=== PATIENT | female | born 1930 | race Caucasian/White ===

== ENCOUNTER 2018-02-05 16:49 | Emergency (ER) | payer MEDICARE, BC ==
[~2018-02-05] VITALS: Ht 160 cm; Wt 79.4 kg
--- NOTE | ~2018-02-05 | EKG ---
[place], [place] ELECTROCARDIOGRAM REPORT NAME: SULEMA BOLANOS UNIT #: [id number] ROOM: DOCTOR: MELISSA ALEJANDRO MD BIRTHDATE: [birth year] DOS: 02/05/2018 TIME: 1758 hours. FINDINGS: 1. Normal sinus rhythm at 68 beats per minute. 2. Normal ECG. 3. No previous tracing is available for comparison. MELISSA ALEJANDRO MD CM:EKGRPT:ELECTROCARDIOGRAM REPORT 1117 1425 MELISSA ALEJANDRO MD
[2018-02-05 16:49] VITALS: BP 156/61
[2018-02-05] MEDS ORDERED: LORAZEPAM0.5 MG PO (17:04)
[2018-02-05] MEDS ORDERED: CELEBREX100 MG PO (17:04)
[2018-02-05] MEDS ORDERED: ASPIRIN81 M1 PO (17:04)
[2018-02-05] MEDS ORDERED: SERTRALINE HYDR50 MG PO (17:05)
[2018-02-05] MEDS ORDERED: NITROFURANTOIN100 M9 PO (17:05)
[2018-02-05] MEDS ORDERED: ATARAX,VISTARIL10 MG PO (17:06)
[2018-02-05] MEDS ORDERED: MIRALAX POWDER255 G1 PO (17:07)
[2018-02-05] MEDS ORDERED: SENNA8.6 MG PO (17:07)
[2018-02-05] MEDS ORDERED: TYLENOL325 M1 PO (17:08)
[2018-02-05 18:24] LABS: BASO % 0.6 % (0.0-1.0); EOS # 0.2 10*3/uL (0.0-0.4); EOS % 3.7 % (1.0-4.0); HEMATOCRIT 44.6 % (37.0-47.0); HEMOGLOBIN 14.8 g/dl (12.0-16.0); LYMPH # 1.9 10*3/uL (1.3-4.4); LYMPH % 40.2 % (27.0-41.0); MEAN CELL VOLUME 91.6 fl (81.0-99.0); MEAN CORPUSCULAR HGB 30.4 pg (27.0-31.0); MEAN CORPUSCULAR HGB CONC 33.2 g/dl (33.0-37.0); MONO # 0.3 10*3/uL (0.1-1.0); NEUT # 2.3 10*3/uL (2.3-7.9); NEUT % 49.3 % (47.0-73.0); PLATELET COUNT AUTOMATED 175 10*3/uL (130-400); RED BLOOD COUNT 4.87 10*6/uL (4.10-5.10); RED CELL DISTRI WIDTH 13.5 % (0-14.5); WHITE BLOOD COUNT 4.6 10*3/uL (4.8-10.8)
[2018-02-05 18:31] LABS: BILIRUBIN NEGATIVE (NEGATIVE); BLOOD TRACE-INTACT (NEGATIVE); CLARITY CLEAR (CLEAR); COLOR YELLOW (YELLOW); GLUCOSE NEGATIVE (NEGATIVE); KETONE NEGATIVE (NEGATIVE); LEUKO ESTERASE TRACE (NEGATIVE); NITRITE NEGATIVE (NEGATIVE); PH 5.5 (5.0-9.0); SPECIFIC GRAVITY <= 1.005 (1.005-1.030); UROBILINOGEN 0.2 E.U./dl (0.2-1.0)
[2018-02-05 18:40] LABS: ALBUMIN 3.5 gm/dl (3.1-4.5); ALKALINE PHOSPHATASE 70 U/L (45-117); BUN 12 mg/dl (7-24); CHLORIDE 103 mmol/L (98-107); CREATININE 0.86 mg/dL (0.55-1.02); POTASSIUM 4.5 mmol/L (3.5-5.1); SGOT/AST 17 IU/L (3-35); SGPT/ALT 17 U/L (12-78); SODIUM 138 mmol/L (136-145); TOTAL PROTEIN 6.8 gm/dL (6.4-8.2)
[2018-02-05 18:41] LABS: RBC 0-2 rbc/hpf (0-2); YEAST 1+
[2018-02-05 18:43] LABS: URINE AMPHETAMINES < 1000 (1000ng/ml); URINE BARBITURATES < 200 (200ng/ml); URINE BENZODIAZEPINES < 200 (200ng/ml); URINE CANNABINOIDS (THC) < 50 (50ng/ml); URINE COCAINE < 300 (300ng/ml); URINE METHADONE < 300 (300ng/ml); URINE OPIATES < 300 (300ng/ml)
[2018-02-05 18:50] LABS: ACETAMINOPHEN (TYLENOL) < 2.0 ug/ml (10-30); ETHYL ALCOHOL < 3.0 mg/dl (<3)
[2018-02-05 18:51] LABS: URINE PHENCYCLIDINE < 25 (25ng/ml)
== END 2018-02-05 21:47 | disposition home health service (06) ==
LOC: ED 16:49
PROVIDERS: Physician Assistant
DX: F33.3 Major depressive disorder, recurrent, severe with psychotic symptoms (principal); Z98.890 Other specified postprocedural states; Z90.710 Acquired absence of both cervix and uterus; Z96.641 Presence of right artificial hip joint; Z79.899 Other long term (current) drug therapy; Z79.82 Long term (current) use of aspirin; Z88.2 Allergy status to sulfonamides; Z88.5 Allergy status to narcotic agent; Z88.6 Allergy status to analgesic agent; Z88.8 Allergy status to other drugs, medicaments and biological substances

== ENCOUNTER 2018-02-05 21:41 | Inpatient (IN) | payer MEDICARE, BC ==
--- NOTE | ~2018-02-05 | PR ---
[place], [place] PROGRESS NOTE NAME: SULEMA BOLANOS UNIT #: [id number] ROOM: 317 DOCTOR: ADAM FRASER MD BIRTHDATE: [birth year] DOS: 02/09/2018 CHIEF COMPLAINT: "I just want to go home." SUMMARY OF THE VISIT: The patient was interviewed in the dining area where she was sitting after eating her breakfast. She had completed her entire breakfast. As I approached, she engaged readily in conversation, reporting that she wants to leave the hospital and was hopeful she can go home soon. She could not tell me how long she had been here or even why she was here, but she was pleasant in doing so. There was no mood lability or agitation noted. MENTAL STATUS: She remains alert and oriented to person, place and that she knows she is in the hospital, not necessarily to time. Mood does seem to be improving. Affect is much more appropriate. There was no carey or hypomania. There are no gross psychotic symptoms. Short-term memory is exceptionally poor and she does process conversation at times slowly with sparse responses. PLAN: I will increase simultaneously the Exelon patch from 4.6 mg a day to 9.5 mg a day while increasing Namenda from 5 mg a day to 5 mg b.i.d. We will engage in individual and rooney milieu activity, returning to the least restrictive environment when psychiatrically stable. ADAM FRASER MD CM:PNTRANS [id number] ADAM FRASER MD 02/09/18 1417 interface
--- NOTE | ~2018-02-05 | DS ---
[place], [place] DISCHARGE SUMMARY NAME: SULEMA BOLANOS [facility] #: [id number] UNIT #: [id number] ROOM: 317 DOCTOR: ADAM FRASER MD BIRTHDATE: [birth year] DOS: 02/11/2018 CHIEF COMPLAINT: "I don't want to be here." HISTORY OF PRESENT ILLNESS: This is an 88-year-old white female who was sent to the Emergency Room at [facility] from [facility] in [place]. The patient was found on the day of admission having wrapped a necklace around her neck very tightly, threatening suicide. She reports ongoing depression ever since she was admitted to [facility]. This has been going on now for weeks, worsening in the last several days prior to this admission. During this period of time, she has not been attending to her ADLs. She has not been sleeping or eating well. She has been very negativistic and making threats to hurt herself. Attempts to support and redirect have not been successful. The patient was admitted then to rule out any organic factors, to protect herself from harm, to engage in individual and rooney milieu activity and then to return to the least restrictive environment when psychiatrically stable. PAST MEDICAL HISTORY: Remarkable for a history of multiple TIAs, neurogenic bladder. SUMMARY: The patient does not smoke cigarettes, nor does she consume alcohol or use illicit drugs. ALLERGIES: The patient lists allergies to SULFA, ATROPINE, CODEINE, FENTANYL, HYDROCODONE, HYOSCYAMINE, LIDOCAINE, MORPHINE, PHENOBARB, PROMETHAZINE and SCOPOLAMINE. STRENGTHS: Good verbal skills and supportive family. WEAKNESSES: Poor coping skills and worsening confusion. SUMMARY OF THE HOSPITAL COURSE: The patient was admitted to the unit where she was started on Remeron 15 mg at bedtime to combat the depressive symptomatology. This had almost immediate positive response. In starting the Remeron, I had discontinued her Zoloft and hydroxyzine to simplify matters. I also found her to have some cognitive slippage, so she was started on Exelon patch 4.6 mg daily and Namenda 5 mg a day. Exelon patch was quickly titrated upwards to 9.5 mg and then 13.3 mg daily, while Namenda was stabilized out at 5 mg twice a day. Of note, the patient was diagnosed with a UTI upon admission, which was treated and this did help improve her overall mental status. The patient had a dramatic improvement with the current medication regimen, noting a complete clearage of her depressive symptoms and an alleviation of any suicidal thoughts. She voiced positive plans for the future and was anxious to return back to [facility]. MENTAL STATUS AT DISCHARGE: The patient was alert and oriented to person, place, not necessarily to time. Mood was strongly trending towards euthymia. Speech rate and pattern were within normal limits. There was no carey or hypomania. There were no gross psychotic symptoms. She convincingly denied suicidal thoughts, homicidal thoughts, any self-injurious thoughts. Short term memory had gaps, otherwise she was intact. [place], [place] DISCHARGE SUMMARY NAME: SULEMA BOLANOS [facility] #: [id number] UNIT #: [id number] ROOM: 317 DOCTOR: ADAM FRASER MD BIRTHDATE: [birth year] FINAL DIAGNOSES UPON DISCHARGE: Major depression, recurrent, severe and Alzheimer's dementia. DISPOSITION: The patient is returning to [facility]. Her scripts were e scribed to the [facility] pharmacy. Medically, she was stable. Psychiatrically, she was stable. Her biopsychosocial needs are adequately being met by the facility to which she is returning. ADAM FRASER MD CM:DISCHARG [id number] ADAM FRASER MD 02/11/18 1509 interface
--- NOTE | ~2018-02-05 | PR ---
[place], [place] PROGRESS NOTE NAME: SULEMA BOLANOS UNIT #: [id number] ROOM: 317 DOCTOR: OK LEE ANN BIRTHDATE: [birth year] DOS: 02/10/2018 CHIEF COMPLAINT: "Good morning, I don't know what happened to me, so have to tell me." SUMMARY OF VISIT: An 88-year-old female was interviewed while sitting in a wheelchair, waiting for breakfast in the dining cole. HISTORY OF PRESENT ILLNESS: The patient reports that she feels better, but does not remember what happened. We informed the patient that she had a UTI and she states that she has had about 4 of those this year and when that happens, she tends to get mean. We also informed the patient that we will work on getting her back to where she came from, but it may take some time. The patient states she understands and tells us that they should get on it while laughing. The patient is very pleasant and engaging throughout this interview. Per nursing staff, the patient's son called about 4 times last night around 2:00 a.m. and he sounded intoxicated and was demanding information about the patient and that he would come in today. Security has been notified. Nursing also states that patient was laughing last night, engaging in conversation about cats and expressing her love for cats. The patient also apologized to nursing regarding her behavior and states she gets bad when she has UTIs. MENTAL STATUS EXAMINATION: She is alert and oriented to person, place, and time. Mood is ischemic and affect is appropriate. There is no carey or hypomania. There are no agitation. Short term memory has some gaps. PLAN: 1. Continue current medication regimen. 2. We will engage in individual and word milieu activity, returning to least restrictive environment when psychiatrically stable. ADDENDUM Dr. Fraser 02/18 03:30 p.m.: Above note reviewed. Agree with observations, recommendations, and overall treatment plan. Lee Ann Euceda DO [place], [place] PROGRESS NOTE NAME: SUELMA BOLANOS Jorge L UNIT #: [id number] ROOM: [facility] DOCTOR: LEE ANN EUCEDA DO BIRTHDATE: [birth year] ADAM FRASER MD CM:PNTRANS 0939 T: LEE ANN EUCEDA DO 02/18/18 1554 MC MOTA.LEONORR
--- NOTE | ~2018-02-05 | PR ---
[place], [place] PROGRESS NOTE [id number] UNIT #: [id number] ROOM: 317 DOCTOR: AMA FELDMAN MD BIRTHDATE: [birth year] DOS: 02/08/2018 PSYCHIATRIC PROGRESS NOTE SUBJECTIVE: The patient seen and spoke with the staff. Per staff, the patient is pleasantly confused. No behavioral problems or issues. Medication compliant. Wants to go to work. The patient was pleasant and cooperative. She was in the wheelchair. She reports doing okay. She talked about going to work. 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 She reports good sleep and appetite. She was not in any distress. She is compliant with her medication. MENTAL STATUS EXAMINATION: Pleasant, cooperative. Described her mood as "okay." Affect, mood congruent. Thought processes with confabulation. She denied auditory or visual hallucination. No delusion or paranoia noted. She denied suicidal ideation, intent or plan. She also denied homicidal ideation, intent or plan. PLAN: 1. Continue current medication and care. 2. Continue redirection. 3. Supportive care. 4. Final medication management and discharge plan by the regular team. AMA FELDMAN MD CM:PNTRANS [id number] AMA FELDMAN MD 02/09/18 0243 interface
--- NOTE | ~2018-02-05 | WRIGHTHP ---
[place], [place] PATIENT HISTORY AND PHYSICAL EXAM [id number] UN[facility] #: [id number] ROOM: 317 DOCTOR: ADAM FRASER MD BIRTHDATE: [birth year] DOS: 02/06/2018 CHIEF COMPLAINT: "I don't want to be here." HISTORY OF PRESENT ILLNESS: This is an 88-year-old white female who was sent to the Emergency Room at [facility] from [facility] in [place]. The patient was found on the day of admission having wrapped a necklace around her neck very tightly threatening suicide. The patient reports ongoing depression ever since she was admitted to [facility], this has been ongoing for several weeks now. During this period of time, she has not been attending to her ADLs. She has not been sleeping or eating well. She has been very negativistic and threatening suicide. Attempts to support and redirect have not been successful and she is continued to slip deeper into a depression. Complicating matters is the fact that the patient does have dementia and her confusion has worsened during this period of time. She is now admitted to rule out any organic factors to attempt to stabilize on medication, to engage in individual and rooney milieu activity with the plan to return to the least restrictive environment when psychiatrically stable. PAST MEDICAL HISTORY: Remarkable for multiple TIAs and neurogenic bladders. The patient does not smoke cigarettes nor does she consume alcohol or use illicit drugs. ALLERGIES: She does list allergies to SULFA, ATROPINE, CODEINE, FENTANYL, HYDROCODONE, HYOSCYAMINE, LIDOCAINE, MORPHINE, PHENOBARB, PROMETHAZINE and SCOPOLAMINE. STRENGTHS: Good verbal skills, supportive family. WEAKNESSES: Poor coping skills and worsening confusion. MENTAL STATUS: She is alert and oriented to person, place and very much to time with gaps. Mood is overwhelmingly depressed. Affect is flat, blunted and constricted. She gives a lot of I don't know and I don't care. Responses to questions asked of her. There is no carey or hypomania; likewise, there are no overt auditory or visual hallucinations, no delusions, no paranoia. Short-term memory is problematic and she does process at times slowly. DIAGNOSIS: Major depression, recurrent, severe and Alzheimer dementia. PLAN: The patient has been started on Remeron 15 mg at bedtime. I will also now start her on Exelon patch 4.6 mg daily and Namenda 5 mg a day. I have discontinued her Ativan, her Zoloft and her hydroxyzine to simplify matters. We will engage in individual and rooney milieu activity with the plan to return to the least restrictive environment when psychiatrically stable. [place], [place] PATIENT HISTORY AND PHYSICAL EXAM NAME: SULEMA BOLANOS UNIT #: [id number] ROOM: 317 DOCTOR: ADAM FRASER MD BIRTHDATE: [birth year] ADAM FRASER MD CM:HISPHYS:PATIENT HISTORY AND PHYSICAL EXAMINATION 0723 1002 ADAM FRASER MD 02/06/18 1001 interface
--- NOTE | ~2018-02-05 | PR ---
[place], [place] PROGRESS NOTE NAME: SULEMA BOLANOS [facility] #: [id number] UNIT #: [id number] ROOM: 317 DOCTOR: AMA FELDMAN MD BIRTHDATE: [birth year] DOS: 02/07/2018 PSYCHIATRIC PROGRESS NOTE SUBJECTIVE: The patient seen and spoke with the staff. Per staff, the patient is pleasantly confused and compliant with her medication and denied any side effect from the medication. The patient was in the dining area in the [employer] chair. She reports being sad and down, but not able to tell me what made her sad. She denied hopelessness or helplessness. She is taking her medication regularly and did not have any side effect from the medication. PLAN: 1. Continue current medications and care. 2. Continue redirection. 3. Supportive care. 4. Increase activity and groups. AMA FELDMAN MD CM:PNTRANS [id number] AMA FELDMAN MD 02/08/18 1432 interface
[~2018-02-05 21:41] MED LIST: ASPIRIN81 M1 PO; ATARAX,VISTARIL10 MG PO; CELEBREX100 MG PO; LORAZEPAM0.5 MG PO; MIRALAX POWDER255 G1 PO; NITROFURANTOIN100 M9 PO; SENNA8.6 MG PO; SERTRALINE HYDR50 MG PO; TYLENOL325 M1 PO
[2018-02-05 22:02] VITALS: BP 180/84
[2018-02-06 01:51] VITALS: BP 172/68
[2018-02-06 08:00] VITALS: BP 118/70
[2018-02-06 15:13] LABS: ALBUMIN 3.7 gm/dl (3.1-4.5); ALKALINE PHOSPHATASE 76 U/L (45-117); BUN 13 mg/dl (7-24); CHLORIDE 107 mmol/L (98-107); CHOLESTEROL 239 mg/dL (<200); CREATININE 0.92 mg/dL (0.55-1.02); HDL CHOLESTEROL 76 mg/dl (40-60); LDL CHOLESTEROL 139 mg/dL (9-159); POTASSIUM 4.3 mmol/L (3.5-5.1); SGOT/AST 22 IU/L (3-35); SGPT/ALT 18 U/L (12-78); SODIUM 142 mmol/L (136-145); TOTAL PROTEIN 6.8 gm/dL (6.4-8.2); TRIGLYCERIDES 121 mg/dl (<150); VLDL CHOLESTEROL 24 mg/dL (6-40)
[2018-02-06 15:25] LABS: VITAMIN D, 25-HYDROXY 10.7 ng/mL (30-100)
[2018-02-06 16:15] LABS: BASO % 0.7 % (0.0-1.0); EOS # 0.1 10*3/uL (0.0-0.4); EOS % 2.7 % (1.0-4.0); HEMATOCRIT 40.8 % (37.0-47.0); HEMOGLOBIN 13.6 g/dl (12.0-16.0); LYMPH # 1.8 10*3/uL (1.3-4.4); LYMPH % 40.5 % (27.0-41.0); MEAN CELL VOLUME 91.7 fl (81.0-99.0); MEAN CORPUSCULAR HGB 30.6 pg (27.0-31.0); MEAN CORPUSCULAR HGB CONC 33.3 g/dl (33.0-37.0); MEAN PLATELET VOLUME 8.8 fl (9.6-12.3); MONO # 0.3 10*3/uL (0.1-1.0); MONO % 7.4 % (3.0-9.0); NEUT # 2.2 10*3/uL (2.3-7.9); NEUT % 48.5 % (47.0-73.0); PLATELET COUNT AUTOMATED 171 10*3/uL (130-400); RED BLOOD COUNT 4.45 10*6/uL (4.10-5.10); RED CELL DISTRI WIDTH 13.5 % (0-14.5); WHITE BLOOD COUNT 4.5 10*3/uL (4.8-10.8)
[2018-02-06 19:59] VITALS: BP 155/53
[2018-02-07 07:40] VITALS: BP 140/89
[2018-02-07 20:00] VITALS: BP 142/74
[2018-02-08 08:14] VITALS: BP 135/81
[2018-02-08 20:00] VITALS: BP 148/88
[2018-02-09 07:58] VITALS: BP 143/79
[2018-02-09 19:56] VITALS: BP 135/57
[2018-02-10 08:14] VITALS: BP 124/68
[2018-02-10 20:16] VITALS: BP 128/72
[2018-02-11 08:10] VITALS: BP 130/67
[2018-02-11] MEDS ORDERED: MIRTAZAPINE15 M2 PO (10:22)
[2018-02-11] MEDS ORDERED: NAMENDA-5 PO (10:22)
[2018-02-11] MEDS ORDERED: RIVASTIGMINE1 EAC1 T (10:22)
== END 2018-02-11 16:30 | DRG 885 ==
LOC: 3N 21:41
PROVIDERS: Psychiatry & Neurology Psychiatry
DX: F33.2 Major depressive disorder, recurrent severe without psychotic features (principal); G30.9 Alzheimer's disease, unspecified; F02.80 Dementia in other diseases classified elsewhere, unspecified severity, without behavioral disturbance, psychotic disturbance, mood disturbance, and anxiety; N31.9 Neuromuscular dysfunction of bladder, unspecified; I16.0 Hypertensive urgency; E66.9 Obesity, unspecified; Z96.641 Presence of right artificial hip joint; Z96.1 Presence of intraocular lens; Z96.652 Presence of left artificial knee joint; Z86.73 Personal history of transient ischemic attack (TIA), and cerebral infarction without residual deficits; Z88.2 Allergy status to sulfonamides; Z88.6 Allergy status to analgesic agent; Z88.8 Allergy status to other drugs, medicaments and biological substances; Z87.440 Personal history of urinary (tract) infections; Z98.42 Cataract extraction status, left eye; Z98.41 Cataract extraction status, right eye; Z98.891 History of uterine scar from previous surgery; Z90.710 Acquired absence of both cervix and uterus; Z87.891 Personal history of nicotine dependence; Z80.1 Family history of malignant neoplasm of trachea, bronchus and lung; Z79.899 Other long term (current) drug therapy; Z79.82 Long term (current) use of aspirin

== ENCOUNTER 2018-06-23 11:39 | Emergency (ER) | payer MEDICARE, BC ==
[~2018-06-23] VITALS: Ht 177.8 cm; Wt 68.0 kg
--- NOTE | ~2018-06-23 | EKG ---
[place], [place] ELECTROCARDIOGRAM REPORT NAME: SULEMA BOLANOS UNIT #: [id number] ROOM: DOCTOR: EPIPHANY DRAFT REPORT BIRTHDATE: [birth year] [facility] Test Date: 2018-06-23 Test Time: 12:30:49 Pat Name: SULEMA BOLANOS Department: Room: Gender: F Supervisor Drying: : 1930 Requested By: EDITA ZUNIGA Order Number: [id number] Reading MD: Baltazar Powell MD Measurements Intervals Gordon Rate: 73 P: -11 OK: 166 QRS: -15 QRSD: 75 T: 69 QT: 406 QTc: 448 Interpretive Statements Sinus rhythm Borderline left axis deviation No previous ECG available for comparison Electronically Signed On 06-23-2018 20:02:53 PDT by Baltazar Powell MD CM:EKGRPT:ELECTROCARDIOGRAM REPORT 1230 01 EDITA JOHNSON DRAFT REPORT EDITA ZUNIGA M.D.
[~2018-06-23 11:39] MED LIST changes: +MIRTAZAPINE15 M2 PO; +NAMENDA-5 PO; +RIVASTIGMINE1 EAC1 T
[2018-06-23 12:27] LABS: BASO % 0.3 % (0.0-1.0); EOS # 0.1 10*3/uL (0.0-0.4); EOS % 1.3 % (1.0-4.0); HEMOGLOBIN 12.2 g/dl (12.0-16.0); LYMPH # 2.6 10*3/uL (1.3-4.4); LYMPH % 25.4 % (27.0-41.0); MEAN CELL VOLUME 93.2 fl (81.0-99.0); MEAN CORPUSCULAR HGB 30.7 pg (27.0-31.0); MEAN PLATELET VOLUME 9.2 fl (9.6-12.3); MONO # 0.4 10*3/uL (0.1-1.0); MONO % 3.4 % (3.0-9.0); NEUT # 7.1 10*3/uL (2.3-7.9); NEUT % 69.4 % (47.0-73.0); PLATELET COUNT AUTOMATED 161 10*3/uL (130-400); RED BLOOD COUNT 3.97 10*6/uL (4.10-5.10); RED CELL DISTRI WIDTH 14.2 % (0-14.5); WHITE BLOOD COUNT 10.2 10*3/uL (4.8-10.8)
[2018-06-23 12:41] LABS: ACT PARTIAL THROMBO TIME 27.2 SECONDS (20.8-31.5)
[2018-06-23 12:45] LABS: CREATININE 1.1 mg/dL (0.55-1.02); POTASSIUM 4.1 mmol/L (3.5-5.1); TOTAL PROTEIN 6.4 gm/dL (6.4-8.2); TROPONIN I 0.033 ng/ml (<0.045)
[2018-06-23 13:21] LABS: BILIRUBIN NEGATIVE (NEGATIVE); BLOOD 2+ (NEGATIVE); CLARITY TURBID (CLEAR); COLOR YELLOW (YELLOW); GLUCOSE NEGATIVE (NEGATIVE); KETONE TRACE (NEGATIVE); LEUKO ESTERASE 2+ (NEGATIVE); NITRITE NEGATIVE (NEGATIVE); PH 5.5 (5.0-9.0); SPECIFIC GRAVITY 1.025 (1.005-1.030)
[2018-06-23 13:36] LABS: WBC TNTC wbc/hpf (0-5)
[2018-06-23 14:17] VITALS: BP 94/40
== END 2018-06-23 17:26 | disposition short-term general hospital (02) ==
LOC: ED 11:39
PROVIDERS: Emergency Medicine
DX: R41.82 Altered mental status, unspecified (principal); N39.0 Urinary tract infection, site not specified; E66.9 Obesity, unspecified; I10 Essential (primary) hypertension; Z88.2 Allergy status to sulfonamides; Z88.5 Allergy status to narcotic agent; Z88.6 Allergy status to analgesic agent; Z88.4 Allergy status to anesthetic agent; Z88.8 Allergy status to other drugs, medicaments and biological substances; Z79.82 Long term (current) use of aspirin; Z79.899 Other long term (current) drug therapy; Z86.73 Personal history of transient ischemic attack (TIA), and cerebral infarction without residual deficits; Z90.710 Acquired absence of both cervix and uterus; Z87.442 Personal history of urinary calculi